=== PATIENT | male | born 1955 | race Caucasian/White ===

== ENCOUNTER 2020-12-07 12:31 | Emergency (ER) | payer OTHER, MEDICAID ==
[~2020-12-07] VITALS: Ht 167.6 cm; Wt 72.0 kg
[2020-12-07] MEDS ORDERED: LIDOCAINE HCL/EPINEPHRINE 1%-EPI 1:100,000 20 ML VIAL INFIL ONE (13:00)
[2020-12-07] MEDS ORDERED: IBUP-2029 MT (14:00)
[2020-12-07] MEDS ORDERED: TETANUS, DIPHTHERIA, PERTUSSIS VAC/PF 0.5ML (>7YR OLD) IM ONE (14:00)
[2020-12-07 15:14] VITALS: BP 143/91
== END 2020-12-07 15:21 | disposition home or self-care (01) ==
LOC: ER 14:21
DX: S01.81XA Laceration without foreign body of other part of head, initial encounter (principal); M19.90 Unspecified osteoarthritis, unspecified site; W01.190A Fall on same level from slipping, tripping and stumbling with subsequent striking against furniture, initial encounter; Y93.89 Activity, other specified; Y92.018 Other place in single-family (private) house as the place of occurrence of the external cause
CPT/HCPCS: 12013; 90471; 90715; 99283; J3490

== ENCOUNTER 2020-12-09 12:36 | Emergency (ER) | payer OTHER, MEDICAID ==
[~2020-12-09] VITALS: Ht 167.6 cm; Wt 69.0 kg
[~2020-12-09 12:36] MED LIST: IBUP-2029 MT
[2020-12-09 12:39] VITALS: BP 144/90
[2020-12-09] MEDS ORDERED: BO1 TP (12:48)
== END 2020-12-09 12:57 | disposition home or self-care (01) ==
LOC: ER 12:36
DX: Z48.00 Encounter for change or removal of nonsurgical wound dressing (principal)
CPT/HCPCS: 99281

== ENCOUNTER 2020-12-14 09:20 | Emergency (ER) | payer OTHER, MEDICAID ==
[~2020-12-14] VITALS: Ht 167.6 cm; Wt 66.0 kg
[~2020-12-14 09:20] MED LIST changes: +BO1 TP
[2020-12-14 10:00] VITALS: BP 133/84
== END 2020-12-14 10:00 | disposition home or self-care (01) ==
LOC: ER 09:23
DX: Z48.02 Encounter for removal of sutures (principal)
CPT/HCPCS: 99281